=== PATIENT | female | born 1955 | race Caucasian/White ===

== ENCOUNTER 2019-10-07 11:53 | Emergency (ER) | payer OTHER ==
[~2019-10-07] VITALS: Ht 162.6 cm; Wt 88.5 kg
[2019-10-07 12:08] VITALS: Ht 162.6 cm; Wt 88.5 kg
[2019-10-07 14:55] VITALS: BP 149/77
== END 2019-10-07 14:55 | disposition home or self-care (01) ==
LOC: ED 11:53
DX: S92.412A Displaced fracture of proximal phalanx of left great toe, initial encounter for closed fracture (principal); S92.422A Displaced fracture of distal phalanx of left great toe, initial encounter for closed fracture; W22.8XXA Striking against or struck by other objects, initial encounter; Y93.89 Activity, other specified; Y92.89 Other specified places as the place of occurrence of the external cause; Y99.8 Other external cause status